=== PATIENT | female | born 1965 | race Caucasian/White ===

== ENCOUNTER 2018-05-28 20:56 | Emergency (ER) | payer BC, OTHER ==
[~2018-05-28] VITALS: Ht 160 cm; Wt 129.0 kg
[2018-05-28] MEDS ORDERED: SODIUM CHLORIDE 0.9% 1000ML 1,000 ML IV SCH (22:15)
[2018-05-28] MEDS ORDERED: METOCLOPRAMIDE HCL 10 MG/2ML VIAL IV ONE (22:15)
--- NOTE | 2018-05-28 22:55 | Diagnostic Imaging Report ---
EXAMINATION: Head CT without contrast. HISTORY:Headache for 2 weeks. COMPARISON:None. TECHNIQUE: Multidetector axial images were obtained from the foramen magnum to the vertex without contrast. The images were reconstructed using brain and bone algorithms. Thin section brain images were reformatted into coronal and sagittal planes. Dose modulation, iterative reconstruction, and/or weight based adjustment of the mA/kV was utilized to reduce the radiation dose to as low as reasonably achievable. Intravenous contrast: None IMAGE QUALITY: Suboptimal evaluation of skull base and posterior fossa due to streak artifacts. FINDINGS: Skull/scalp: No lytic or blastic. lesions. No surgical changes. Parenchyma: No abnormal density. No acute hemorrhage, mass or acute major vascular territorial infarct. Arteries: No density suggestive of thrombosis. Dural sinuses: No abnormal density suggestive of thrombosis. Ventricles: No hydrocephalus or displacement. Extra-axial spaces: No abnormal density. Brain volume: Normal for age. Craniocervical junction: No mass, Chiari malformation, or basilar invagination. Sella: No mass. Paranasal/mastoid sinuses: Imaged portions unremarkable. IMPRESSION: No intracranial abnormality. Signed by: Dr. Kenya Davis M.D. on 05/28/2018 10:52 PM
[2018-05-28] MEDS ORDERED: KETOROLAC TROMETHAMINE 30 MG/ML VIAL IV STA (23:03)
[2018-05-29 00:54] VITALS: BP 121/68
== END 2018-05-29 00:30 | disposition home or self-care (01) ==
LOC: FSED 20:56
DX: R51 Headache (principal); R11.0 Nausea
CPT/HCPCS: 70450; 80053; 85025; 96374; 96375; 99284